=== PATIENT | female | born 1960 | race Caucasian/White ===

== ENCOUNTER 2023-12-08 19:50 | Emergency (ER) | payer OTHER, SELFPAY ==
--- NOTE | ~2023-12-08 | CT_ITS ---
EXAMINATION: CT abdomen pelvis w con DATE: 12/08/2023 21:01 INDICATION: Suprapubic abdominal pain TECHNIQUE: Computed tomography (CT) of the abdomen and pelvis was performed without intravenous contr ast. Automated exposure control and iterative reconstruction technique were employed. Exam dose: 181 .10 mGy-cm total exam DLP. COMPARISON: None. FINDINGS: The lung bases are clear. Normal heart size. No pericardial or pleural effusion. Very small sliding hiatal hernia. Diffuse fatty infiltration of the liver. No hepatic space-occupying mass lesion. Nonspecific up to 2.4 cm cystic lesion of the uncinate process of the pancreas. Cystic pancreatic alisia plasm is not excluded. There are some calcifications in the region of the pancreatic head and tail suggesting chronic pancre atitis. There is mild bile ducts and pancreatic duct dilatation, the common bile duct measuring up to 8.5 mm, the pancreatic duct measuring approximately 4.5 mm maximal dimension. MRCP/MR imaging of the pancreas is recommended. Normal morphology of the adrenal glands. Status post right nephrectomy. 2.9 cm exophytic cyst of the lower pole of the left kidney. 11.5 mm cyst in the upper pole of the lef t kidney. There are some calcifications in the central hilar area of the kidney, likely arteriosclero tic. No urinary tract calculus or hydroureteronephrosis of the left kidney. There is extensive atheromatous plaque and calcification of the abdominal aorta but no aneurysm or di ssection is evident. Atherosclerotic disease of the iliac and femoral arteries as well. No intraperitoneal or retroperitoneal or pelvic mass lesion or adenopathy or ascites. No bowel obstruction or intraperitoneal free air. The urinary bladder is unremarkable. Status post hysterectomy. Likely chronic anterior wedge compression fracture deformities of T11 and T12. No suspicious osteolyt ic or osteoblastic lesions are noted. IMPRESSION: 4 cm nonspecific cystic lesion of the uncinate process of the pancreas; cystic pancreati c neoplasm is not excluded. Common bile duct or pancreatic duct dilatation Pancreatic calcifications suggest chronic pancreatitis MRCP/MR pancreas is recommended for further evaluation Hepatic steatosis Status post right nephrectomy Left renal cysts Status post hysterectomy Likely chronic fracture deformities of T11 and T12 Reviewed, dictated and finalized at [facility]. Reviewed, dictated and finalized at [facility]. IMPRESSION: 4 cm nonspecific cystic lesion of the uncinate process of the panc reas; cystic pancreatic neoplasm is not excluded. Common bile duct or pancreatic duct dilatation Pancreatic calcifications suggest chronic pancreatitis MRCP/MR pancreas is recommended for further evaluation Hepatic steatosis Status post right nephrectomy Left renal cysts Status post hysterectomy Likely chronic fracture deformities of T11 and T12
[2023-12-08 19:56] VITALS: BP 169/79; PULSE 82; RESP 21; TEMP 36.4; O2SAT 98
--- NOTE | 2023-12-08 20:18 | ED_ITS ---
HPI - General Adult General Chief complaint: Abdominal Pain Stated complaint: abd pain x 24 hours Time Seen by Provider: 12/08/23 20:06 Source: patient Mode of arrival: ambulatory Limitations: no limitations History of Present Illness HPI narrative: This is a 63-year-old female who presents to the ED for chief complaint of lower abdominal pain for the past 24 hours. Patient reports a squeezing stabbing pain that radiates from upper to lower abdomen. Denies back pain. Endorses nausea but no vomiting. States that she has had greater than 5 episodes of diarrhea each day for the past 2 days. Denies GI bleeding symptoms. She reports history of colorectal surgery and has had bowel obstructions in the past. States that her colorectal surgery was done many years ago down in [facility]. Denies fevers, chills, urinary symptoms, chest pain, shortness of breath. Related Data Allergies Allergy/AdvReac Type Severity Reaction Status Date / Time pollen extracts Allergy Intermediate Congested Verified 12/08/23 20:34 red dye Allergy Unknown Unknown Verified 12/08/23 20:34 Review of Systems 2 Review of Systems: All systems as dictated in HPI Exam Narrative: GENERAL: Well-appearing, well-nourished, and in no acute distress. HEAD: Normocephalic, atraumatic. EYES: PERRLA and EOMI. ENT: Nares clear, no rhinorrhea or epistaxis. Mucous membranes moist. Oropharynx without tonsillar hypertrophy exudate or other lesions. NECK: Supple. No adenopathy or masses. CHEST: No respiratory distress. Clear to auscultation. No wheezes rales or rhonchi HEART: Regular rate and rhythm. No murmur heard. Normal peripheral pulses. ABDOMEN: Mild suprapubic tenderness. Soft, otherwise nontender, nondistended, normal active bowel sounds. Negative flank tenderness bilaterally MSK: Normal range of motion. No edema. SKIN: Warm, dry, no rash. NEURO: Alert and oriented x4. No focal deficits. PSYCH: Normal mood and affect. Course Vital Signs Vital signs: Vital Signs Temperature 97.6 F 12/08/23 19:56 Pulse Rate 82 12/08/23 19:56 Respiratory Rate 21 H 12/08/23 19:56 Blood Pressure 169/79 H 12/08/23 19:56 Pulse Oximetry 98 12/08/23 19:56 Oxygen Delivery Room Air 12/08/23 19:56 Temperature 97.6 F 12/08/23 19:56 Pulse Rate 75 12/08/23 22:18 Respiratory Rate 14 12/08/23 22:18 Blood Pressure 191/76 H 12/08/23 22:18 Pulse Oximetry 93 12/08/23 22:18 Oxygen Delivery Room Air 12/08/23 19:56 Medical Decision Making MDM Narrative Medical decision making narrative: This is a 63 yo female who presents to the ED for chief complaint of abdominal pain. Vitals are showing elevated blood pressure but otherwise normal. Exam shows mild suprapubic abdominal tenderness but it abdominal exam is otherwise benign. Lab work shows CBC is unremarkable. CMP with mildly elevated alk-phos of 164. Urinalysis shows signs of dehydration but no UTI. CT abdomen pelvis with IV contrast: IMPRESSION: 4 cm nonspecific cystic lesion of the uncinate process of the pancreas; cystic pancreatic neoplasm is not excluded. Common bile duct or pancreatic duct dilatation Pancreatic calcifications suggest chronic pancreatitis MRCP/MR pancreas is recommended for further evaluation Hepatic steatosis Status post right nephrectomy Left renal cysts Status post hysterectomy Likely chronic fracture deformities of T11 and T12 The above findings on the CT do appear chronic. I re-evaluated the patient after multiple rounds of pain medications and she is now resting comfortably and sleeping on my exam. She does tell me that she has known about these cystic pancreatic lesions. I discussed the options with the patient regarding off discharge versus admission and patient would rather go home tonight. GI referral given Patient will be discharged in stable condition. Supportive measures discussed and return precautions given. Patient is understanding and agreeable with plan for discharge with PCP follow-up. Vital Signs Vital Signs: Vital Signs Temperature 97.6 F 12/08/23 19:56 Pulse Rate 82 12/08/23 19:56 Respiratory Rate 21 H 12/08/23 19:56 Blood Pressure 169/79 H 12/08/23 19:56 Pulse Oximetry 98 12/08/23 19:56 Oxygen Delivery Room Air 12/08/23 19:56 Temperature 97.6 F 12/08/23 19:56 Pulse Rate 75 12/08/23 22:18 Respiratory Rate 14 12/08/23 22:18 Blood Pressure 191/76 H 12/08/23 22:18 Pulse Oximetry 93 12/08/23 22:18 Oxygen Delivery Room Air 12/08/23 19:56 Lab Data 12/08/23 20:12 12/08/23 20:12 Labs: Lab Results 12/08/23 12/08/23 Range/Units 20:12 21:42 WBC 8.4 (4.5-10.0) K/mm3 RBC 5.43 H (4.2-5.4) M/mm3 Hgb 14.8 (12.0-15.0) g/dL Hct 44.6 (37.0-47.0) % MCV 82.1 (80-100) fl MCH 27.3 (26-34) pg MCHC 33.2 (32-36) g/dl RDW 14.4 (11.5-14.5) % Plt Count 349 (150-375) k/mm3 MPV 9.9 (7.4-10.4) fl Immature Gran % (Auto) 0.2 (0-0.5) % Neut % (Auto) 55.2 (45.5-73.1) % Lymph % (Auto) 34.1 (18.3-44.2) % Merrick % (Auto) 6.7 (2.6-8.5) % Eos % (Auto) 3.1 (0-4.4) % Baso % (Auto) 0.7 (0.2-1.2) % Lymph # (Auto) 2.86 (0.9-3.2) K/mm3 Merrick # (Auto) 0.6 (0.1-0.6) K/mm3 Eos # (Auto) 0.3 (0-0.3) K/mm3 Baso # (Auto) 0.1 (0.0-0.1) K/mm3 Abs Immat Gran (auto) 0.02 (0.00-0.031) K/mm3 Absolute Neuts (auto) 4.6 (1.3-6.7) K/mm3 Absolute Nucleated RBC 0.000 (0.0-0.012) K/mm3 Nucleated RBC % 0.0 (0.0-0.2) % Sodium 140 (137-145) mmol/L Potassium 3.4 (3.4-5.0) mmol/L Chloride 109 H (98-107) mmol/L Carbon Dioxide 22 (22-30) mmol/L Anion Gap 9 (4-12) mmol/L BUN 9 (7-17) mg/dL Creatinine 1.10 H (0.7-1.0) mg/dL Estim Creat Clear Calc 35 ml/min Estimated GFR 50 L (59 - ) Glucose 99 (65-110) mg/dL Lactic Acid 0.9 (0.7-2.0) mmol/L Calcium 9.4 (8.4-10.2) mg/dL Total Bilirubin 0.4 (0.2-1.3) mg/dL AST 24 (14-36) U/L ALT 27 (6-35) U/L Alkaline Phosphatase 164 H (38-126) U/L Total Protein 8.0 (6.3-8.2) g/dL Albumin 4.0 (3.5-5.1) g/dL Lipase 243 (23-300) U/L Urine Color Yellow (Yellow) Urine Appearance Clear (Clear) Urine pH 6.0 (5.0-9.0) Ur Specific [place] 1.033 (1.001-1.035) Urine Protein 3+ H (Negative) mg/dL Urine Glucose (UA) 1+ H (Negative) mg/dL Urine Ketones Negative (Negative) mg/dL Ur Blood (Man) Negative (Negative) Urine Nitrate Negative (Negative) Urine Bilirubin Negative (Negative) Urine Urobilinogen 0.2 (<2.0) mg/dL Leukocyte Esterase Rfl Trace H (Negative) ROXANE/UL Urine RBC 0-2 (0-2) /hpf Urine WBC 0-5 (0-3) /hpf Ur Squamous Epith Cells None seen (Few) /hpf Urine Bacteria None seen /hpf Urine Casts 0-2 Discharge Plan Discharge Clinical Impression: Pancreas cyst, Chronic pancreatitis Patient Disposition: Home, Self-Care Condition: Stable Instructions: Antibiotic Form Additional Instructions: Your exam and imaging today do show cystic lesions on the pancreas. Please follow-up with GI doctor regarding these lesions. Take Tylenol and ibuprofen regularly for pain control. If you have any new or worsening symptoms please return to the ER for further evaluation. Follow-up/Referrals: Clarence Domínguez MD [Physician] - Time of Disposition: 22:49
[2023-12-08 20:20] LABS: Basophils Absolute Auto 0.1 K/mm3 (0.0-0.1); Basophils Percent Auto 0.7 % (0.2-1.2); Eosinophils Absolute Auto 0.3 K/mm3 (0-0.3); Eosinophils Percent Auto 3.1 % (0-4.4); Hematocrit 44.6 % (37.0-47.0); Hemoglobin 14.8 g/dL (12.0-15.0); Immature Granulocyte Absolute 0.02 K/mm3 (0.00-0.031); Immature Granulocyte Percent A 0.2 % (0-0.5); Lymphocytes Absolute Auto 2.86 K/mm3 (0.9-3.2); Lymphocytes Percent Auto 34.1 % (18.3-44.2); Mean Corpuscular HGB Conc 33.2 g/dl (32-36); Mean Corpuscular Hemoglobin 27.3 pg (26-34); Mean Corpuscular Volume 82.1 fl (80-100); Mean Platelet Volume 9.9 fl (7.4-10.4); Monocytes Absolute Auto 0.6 K/mm3 (0.1-0.6); Monocytes Percent Auto 6.7 % (2.6-8.5); Neutrophils Absolute Auto 4.6 K/mm3 (1.3-6.7); Neutrophils Percent Auto 55.2 % (45.5-73.1); Platelet Count Result 349 k/mm3 (150-375); Red Blood Count 5.43 M/mm3 (4.2-5.4); Red Cell Distribution Width 14.4 % (11.5-14.5); White Blood Count 8.4 K/mm3 (4.5-10.0)
[2023-12-08] MEDS: ONDANSETRON INJ 4 MG/2 ML VIAL IV PUSH (20:22)
[2023-12-08] MEDS: HYDROmorphone HCL INJ (*CRX) 1 MG/ML SYR 0.5 MG IV PUSH ×3 (20:22→21:48)
[2023-12-08 20:32] LABS: Lactic Acid Reflex 0.9 mmol/L (0.7-2.0)
[2023-12-08 20:33] LABS: Alanine Aminotransferase 27 U/L (6-35); Alkaline Phosphatase 164 U/L (38-126); Anion Gap 9 mmol/L (4-12); Aspartate Amino Transferase 24 U/L (14-36); Bilirubin,Total 0.4 mg/dL (0.2-1.3); Blood Urea Nitrogen 9 mg/dL (7-17); Calcium 9.4 mg/dL (8.4-10.2); Carbon Dioxide 22 mmol/L (22-30); Chloride 109 mmol/L (98-107); Estimated CRCL calculation 35 ml/min; Estimated Glomerular Filt Rate 50; Glucose 99 mg/dL (65-110); Lipase 243 U/L (23-300); Potassium 3.4 mmol/L (3.4-5.0); Sodium 140 mmol/L (137-145)
[2023-12-08 21:15] VITALS: BP 189/88; PULSE 71; RESP 15; O2SAT 98
[2023-12-08] MEDS: METOCLOPRAMIDE HCL INJ 10 MG/2 ML VIAL IV PUSH (21:47)
[2023-12-08 21:53] LABS: Add Urine Microscopic? YES; Appearance Urine Clear (Clear); Bacteria Urine None Seen /hpf; Bilirubin Urine Negative (Negative); Blood Urine Negative (Negative); Color Urine Yellow (Yellow); Glucose Urine UA 1+ mg/dL (Negative); Ketones Urine Negative (Negative); Leukocyte Esterase Ur Trace LEU/UL (Negative); Nitrate Urine Negative (Negative); Non Pathogenic Casts 0-2; Protein Urine 3+ mg/dL (Negative); RBC Urine 0-2 /hpf (0-2); Specific Grav Ur 1.033 (1.001-1.035); Squamous Epithelial Cell Urine None Seen /hpf (Few); Urobilinogen Urine 0.2 mg/dL (<2.0); WBC Urine 0-5 /hpf (0-3)
[2023-12-08 22:18] VITALS: BP 191/76; PULSE 75; RESP 14; O2SAT 93
[2023-12-08 23:00] VITALS: BP 172/84; PULSE 75; RESP 15; O2SAT 95
--- NOTE | 2023-12-08 23:19 | PC.NURSE ---
pt given $25 by room mate , then hs gave cab voucher to cover remainder of the $33 cab bill. This rn explained that they must give the $25 to the cable dispatcher. Pt and spouse both verbalized understanding.
== END 2023-12-08 23:19 | disposition home or self-care (01) ==
PROVIDERS: Emergency Provider Physician Assistant
DX: K86.2 Cyst of pancreas (principal); K86.1 Other chronic pancreatitis
CPT/HCPCS: 36415; 74177; 80053; 81001; 83605; 83690; 85025; 96374; 96375; 96376; 99284; J1171; J2405; J2765; Q9967